=== PATIENT | male | born 1980 | race Caucasian/White ===

== ENCOUNTER 2016-11-10 07:49 | Inpatient (IN) | payer OTHER ==
[~2016-11-10] VITALS: Ht 185.4 cm; Wt 130.0 kg
[2016-11-10 12:25] VITALS: BP 141/90; PULSE 108; TEMP 36.6; BMI 37.8
[2016-11-10] MEDS ORDERED: BISMUTH SUBSALICYLATE PER ML OMNICELL CHARGE PO PRN (12:45)
[2016-11-10] MEDS ORDERED: MAGNESIUM HYDROXIDE SUSP 30 ML UDC PO PRN (12:45)
[2016-11-10] MEDS ORDERED: hydrOXYzine HCL 25 MG TAB PO PRN ×2 (12:45→13:45)
[2016-11-10] MEDS ORDERED: SODIUM CHLORIDE 0.65% NA SOLN 45 ML (OCEAN) PRN (12:45)
[2016-11-10] MEDS ORDERED: ALUMINUM/MAGNESIUM SUSP 30 ML UDC PO PRN (12:45)
[2016-11-10] MEDS ORDERED: ATR25 PO (12:47)
[2016-11-10] MEDS ORDERED: BREX1TAB5 PO (12:49)
[2016-11-10] MEDS ORDERED: ERGO500037 PO (12:50)
[2016-11-10] MEDS ORDERED: PRAZ1CAP10 PO (12:51)
[2016-11-10] MEDS ORDERED: BUPR-79 PO (12:52)
[2016-11-10] MEDS ORDERED: CLB/200 PO (12:53)
[2016-11-10] MEDS ORDERED: CLR10 PO (12:54)
[2016-11-10] MEDS ORDERED: LEVO88TA3 PO (12:56)
[2016-11-10] MEDS ORDERED: LISI40TA PO (12:58)
[2016-11-10] MEDS ORDERED: VENL225T27 PO (12:59)
[2016-11-10] MEDS ORDERED: PATIENT'S ALLERGY INFO NEEDS ENTERED SCH (13:00)
[2016-11-10] MEDS ORDERED: VENLAFAXINE HCL XR 75 MG CAPXR PO ONE (14:58)
[2016-11-10] MEDS ORDERED: CeleBREX 200 MG CAP PO ONE (14:58)
[2016-11-10] MEDS ORDERED: LISINOPRIL 40 MG TAB PO ONE (14:58)
[2016-11-10] MEDS ORDERED: LORATADINE 10 MG TAB PO ONE (14:58)
[2016-11-10] MEDS: CeleBREX 200 MG CAP PO SCH ×2 (15:12→15:13)
[2016-11-10] MEDS: LORATADINE 10 MG TAB PO SCH (15:13)
[2016-11-10] MEDS: LISINOPRIL 40 MG TAB PO SCH (15:14)
[2016-11-10] MEDS: CHOLECALCIFEROL 1000 INTER.UNIT TAB PO SCH (15:14)
[2016-11-10] MEDS: NICOTINE POLACRILEX 2 MG GUM MT PRN ×3 (15:41→21:09)
[2016-11-10 16:04] VITALS: BP 136/92; PULSE 111; TEMP 36.4
[2016-11-10] MEDS: BuPROPion SR 150 MG TABCR PO SCH (17:24)
[2016-11-10 20:57] VITALS: BP 136/91; PULSE 111; TEMP 36.8
[2016-11-10] MEDS: PRAZOSIN HCL 1 MG CAP PO SCH (21:35)
[2016-11-10] MEDS ORDERED: BuPROPion SR 150 MG TABCR PO SCH (22:00)
[2016-11-11 06:51] VITALS: BP_SYST 128; BP_SYST 139; BP_DIAS 82; BP_DIAS 83; PULSE 111; PULSE 116; TEMP 36.3
[2016-11-11 07:07] VITALS: Ht 185.4 cm; Wt 130.0 kg
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
[2016-11-11] MEDS: LEVOTHYROXINE 88 MCG TAB PO SCH (08:18)
[2016-11-11] MEDS: LORATADINE 10 MG TAB PO SCH (08:19)
[2016-11-11] MEDS: LISINOPRIL 40 MG TAB PO SCH (08:19)
[2016-11-11] MEDS: VENLAFAXINE HCL XR 150 MG CAPXR PO SCH (08:19)
[2016-11-11] MEDS: CHOLECALCIFEROL 1000 INTER.UNIT TAB PO SCH (08:19)
[2016-11-11] MEDS: BuPROPion SR 150 MG TABCR PO SCH ×2 (08:19→17:16)
[2016-11-11] MEDS: CeleBREX 200 MG CAP PO SCH (08:19)
[2016-11-11] MEDS ORDERED: VENLAFAXINE HCL XR 75 MG CAPXR PO SCH (09:00)
[2016-11-11] MEDS: NICOTINE POLACRILEX 2 MG GUM MT PRN ×2 (13:04→21:11)
[2016-11-11] MEDS: PRAZOSIN HCL 1 MG CAP PO SCH (21:11)
[2016-11-12] MEDS: ACETAMINOPHEN 325 MG TAB PO PRN ×3 (01:10→21:47)
[2016-11-12 06:52] VITALS: BP_SYST 125; BP_SYST 138; BP_DIAS 88; BP_DIAS 89; PULSE 108; PULSE 118; TEMP 36.3
[2016-11-12] MEDS: LEVOTHYROXINE 88 MCG TAB PO SCH (08:19)
[2016-11-12] MEDS: BuPROPion SR 150 MG TABCR PO SCH ×2 (08:20→17:15)
[2016-11-12] MEDS: LORATADINE 10 MG TAB PO SCH (08:20)
[2016-11-12] MEDS: CeleBREX 200 MG CAP PO SCH (08:20)
[2016-11-12] MEDS: CHOLECALCIFEROL 1000 INTER.UNIT TAB PO SCH (08:20)
[2016-11-12] MEDS: VENLAFAXINE HCL XR 150 MG CAPXR PO SCH (08:20)
[2016-11-12] MEDS: LISINOPRIL 40 MG TAB PO SCH (08:21)
--- NOTE | 2016-11-12 11:51 | Psychiatric Progress Notes ---
Progress Note Date of Service November 12, 2016. Interval History 36 yo male admitted on a voluntary basis on a referral from [facility] for severe depression and suicidality in the context of problems with his , and substance abuse. Chief Complaint "I'd be great if my knee didn't hurt.". Subjective Patient was seen & assessed interval progress reviewed with Treatment Team. The patient says that he just had a family meeting with his , which he thought went well. He was surprised and happy to hear her say that she would attend AA with him so that he could stop drinking and she could stop using cannabis. He is now very optimistic that they can work on their relationship together. He initially felt "defensive" in the meeting, like he was "being picked on" but later realized that he wasn't. He says he has not had SI yesterday or today. He hopes to remain in the hospital for another day or two to work on his issues. he is complaining of lt knee pain and swelling, saying he has had gout in the past, thinking he is having a gout flair. Review of Systems Constitutional: + problem reported (pain in rt knee making ambulation painful) ENT: No dental problems, No hearing loss, No nasal symptoms, No problem reported, No sore throat, No tinnitus, No trouble swallowing, No unusual epistaxis Respiratory: No cough, No dyspnea at rest, No dyspnea on exertion, No hemoptysis, No problem reported, No shortness of breath, No sputum, No wheezing Cardiovascular: No PND, No chest pain, No claudication, No edema, No orthopnea , No palpitations, No problem reported Abdomen: No GI bleeding, No constipation, No diarrhea, No nausea, No pain, No problem reported, No vomiting Musculoskeletal: + joint pain, + swelling Neurologic: No balance problems, No memory loss, No numbness/tingling, No paralysis, No problem reported, No vertigo, No weakness Psychiatric: + depression symptoms (improving) Integumentary: No bleeding, No color change, No itch, No new/changing skin lesions, No problem reported, No rash Sleep Information Total Hours of Sleep: 6.00 Meal Information Percent of Breakfast Consumed: 100 Percent of Lunch Consumed: 100 Percent of Dinner Consumed: 100 Mental Status Exam During interview pt is: alert and oriented, cooperative, other (obese, unkempt , malodorous) Appearance: appropriately dressed, appropriately groomed Eye contact is: good Motor behavior is: steady gait & station, no abnormal motor movements, other ( Using a walker to ambulate due to rt knee pain) Speech: normal in rate, rhythm & volume Affect: mood congruent, depressed, constricted Mood is: depressed Thought process: goal directed, concrete Thought content: reality based without delusions Suicidal thought are: denied Homicidal thoughts are: denied Hallucinations: denies auditory, denies visual Cognition: attention grossly intact, language grossly intact, other (memory impaired for historic details) Intelligence estimated to be: average Insight: impaired Judgement: impaired Impression The patient had a good meeting with his today and is now more optimistic. They have agreed to attend AA together. She brought his bottle of Rexulti to the hospital and we will resume his 3 mg dose at bedtime. Will run a uric acid level in view of knee complaints. With reports of previous attacks of gout, if elevated will give colchicine 1.2 mg X1 with 0.6 mg. 1 hour later. Plan (1) Depression 11/11 -Increase venlafaxine XR to 300 mg daily and continue bupropion SR 150 mg twice a day. If this is ineffective, consider switching to another antidepressant. -Continue prazosin 1mg qhs, but clarify dosing as OSH records indicate 2mg. -Resume home dose of Rexulti once family can bring it in. Indication unclear, may have had psychotic depression in the past, but not evident from records, and he states the hallucinations occur only briefly during periods of severe stress. -Coordinate care with outpatient providers and request records. -Family meeting with . Consider the need for CYS report. -Encourage group attendance and participation. 11/12 - Family meeting held with . Both agree to attend AA together - has brought Rexult and so will resume 3 mg. HS (2) Generalized anxiety disorder -Increase venlafaxine XR as above. Offer hydroxyzine as needed for anxiety. -Work on healthy coping skills and behavioral techniques for managing anxiety. (3) Alcohol use disorder 11/11 -The patient's AUDIT score suggests problematic drinking (Zone III WHO). Brief intervention was offered and [accepted] [refused] Intervention if performed was greater than 5 min in length. Brief interventions include: 1. Assess Readiness to Quit, 2. Advise: Help Patient to Reduce or Abstain from Alcohol, 3. Agree: Set Specific, Feasible Goals, 4. Assist: Anticipate barriers, Problem-Solving Solutions. Social work to 5. Arrange: Referrals to appropriate treatment. Summary of intervention: The patient is in precontemplation stage with regards to transtheoretical model of change. The patient is advised to decrease alcohol consumption due to depressant effects and risk of interactions with prescription medications. The patient agreed to [] and will be provided with recovery materials to continue to education self on how to cope with their condition without drinking. 11/12 - Patient and agree to attend AA together - Will provide with list of AA meetings in their area (4) Thyroid nodule -Continue thyroid medication and f/u with PCP Dr. Belcher, as TSH is elevated. Has appointment scheduled 11/12, will need to be rescheduled. (5) Obesity (BMI 30-39.9) Educated about healthy diet and recommendations to increase physical activity and lose weight. This would likely help with his chronic back pain. (6) Chronic back pain Cont. home dose Celebrex, and f/u with PCP. (7) Gout 11/12 - Uric acid level - If elevated will order colchicine 1.2 mg X 1 with 0.6 mg 1 hr later for acute flair. Discharge / Aftercare Planning Primary Care Physician: Name: Dr. Belcher Date of Appointment: November 12, 2016 Psychiatrist: Name: Dr. Braga - [facility] Therapist: Name: Carter Lazo [facility] Date of Appointment: November 22, 2016 Senior Cytotechnologist: Name: Asia Lazo [facility] Visit Code E&M Code: 81315 Inventory Assets Strengths: , supportive mother Risk Factors Assessment Male: Yes : Yes /single/: No Health problems: Yes Mental Health Diagnoses: Yes Substance use disorders: Yes Previous attempt: No Previous psychiatric stay: Yes Hopelessness: Yes Smoker: Yes Protective Factors Assessment : Yes Responsible for young children: Yes Employed: No Stable relationships: No Supportive family: Yes Good rapport with provider: No Data Vital Signs Last 24 Hrs: Date Time Temp Pulse Resp B/P Pulse Ox O2 Delivery O2 Flow Rate FiO2 11/12/16 06:52 36.3 108 16 138/89 118 125/88 Meds Administered Last 24 Hrs: Meds Administered (Past 24Hrs) Medications (Trade) Dose Ordered Sig/June Route Start Time Stop Time Status Last Admin Dose Admin Acetaminophen (Tylenol Tab) 650 mg Q4H PRN PO 11/10/16 12:45 12/10/16 12:44 11/12/16 07:13 650 MG Hydroxyzine HCl (Vistaril Tab) 50 mg HSZ PRN PO 11/10/16 12:45 12/10/16 12:44 11/10/16 22:26 50 MG Celecoxib (CeleBREX CAP) 200 mg DAILY PO 11/11/16 09:00 12/10/16 08:59 11/12/16 08:20 200 MG Cholecalciferol (Vitamin D Tab) 1,000 inter.unit DAILY PO 11/11/16 09:00 12/11/16 08:59 11/12/16 08:20 1,000 INTER.UNIT Hydroxyzine HCl (Vistaril Tab) 25 mg QID PRN PO 11/10/16 13:45 12/10/16 13:44 11/10/16 15:15 25 MG Levothyroxine Sodium (Synthroid Tab) 88 mcg DAILYBB PO 11/11/16 08:00 12/11/16 07:59 11/12/16 08:19 88 MCG Lisinopril (Zestril Tab) 40 mg DAILY PO 11/11/16 09:00 11/12/16 08:21 40 MG Loratadine (Claritin Tab) 10 mg DAILY PO 11/11/16 09:00 11/12/16 08:20 10 MG Prazosin HCl (Prazosin) 1 mg HS PO 11/10/16 22:00 12/10/16 21:59 11/11/16 21:11 1 MG Nicotine Polacrilex (Nicorette 2MG Gum) 1 piece Q1H PRN MT 11/10/16 13:45 12/10/16 13:44 11/11/16 21:11 1 PIECE Venlafaxine HCl (effeXOR EXTENDED REL CAP) 300 mg QAM PO 11/11/16 09:00 12/10/16 08:59 11/12/16 08:20 300 MG Bupropion HCl (Wellbutrin-Sr Tab) 150 mg BID17 PO 11/10/16 17:00 12/10/16 16:59 11/12/16 08:20 150 MG Venlafaxine HCl (effeXOR EXTENDED REL CAP) 300 mg 1458 ONCE PO 11/10/16 14:58 11/10/16 15:20 DC 11/10/16 15:46 300 MG Problem Qualifiers (1) Depression: Depression Type: major depressive disorder Major depression recurrence: recurrent Major depression episode severity: severe Psychotic features: without psychotic features
[2016-11-12] MEDS: NICOTINE POLACRILEX 2 MG GUM MT PRN ×3 (12:18→21:18)
[2016-11-12] MEDS ORDERED: NURSING VERBAL MED ORDER ONE (14:45)
[2016-11-12] MEDS ORDERED: COLCHICINE 0.6 MG TAB PO ONE ×2 (15:00→16:00)
[2016-11-12] MEDS: PRAZOSIN HCL 1 MG CAP PO SCH (21:14)
[2016-11-12] MEDS: BREXPIPRAZOLE 3 MG PO SCH (21:14)
[2016-11-13] MEDS: ACETAMINOPHEN 325 MG TAB PO PRN (02:15)
[2016-11-13 06:55] VITALS: BP_SYST 133; BP_SYST 135; BP_DIAS 87; PULSE 109; PULSE 96; TEMP 36.5
[2016-11-13] MEDS: LEVOTHYROXINE 88 MCG TAB PO SCH (08:04)
[2016-11-13] MEDS: CeleBREX 200 MG CAP PO SCH (08:45)
[2016-11-13] MEDS: BuPROPion SR 150 MG TABCR PO SCH ×2 (08:46→17:19)
[2016-11-13] MEDS: LORATADINE 10 MG TAB PO SCH (08:46)
[2016-11-13] MEDS: VENLAFAXINE HCL XR 150 MG CAPXR PO SCH (08:46)
[2016-11-13] MEDS: LISINOPRIL 40 MG TAB PO SCH (08:46)
[2016-11-13] MEDS: CHOLECALCIFEROL 1000 INTER.UNIT TAB PO SCH (08:46)
--- NOTE | 2016-11-13 12:27 | Psychiatric Progress Notes ---
Progress Note Date of Service November 13, 2016. Interval History 36 yo male admitted on a voluntary basis on a referral from [facility] for severe depression and suicidality in the context of problems with his , and substance abuse. Chief Complaint "Still optimistic.". Subjective Patient was seen & assessed interval progress reviewed with Treatment Team. The patient's knee feels better today after 2 doses of colchicine, although still painful when ambulating. He says that he continues to feel optimistic that "this new direction" will help he and his . He was provided a list of AA meetings in his area. He had not previously thought that his alcohol use was a problem, but after recognizing that alcohol was part of previous hospitalizations, he has reconsidered this. He knows that it won't be easy to stay away from it all together, but wants for both he and his not to resort to substances to cope. He has spoken with his since the meeting and she remains committed to going to AA together. Review of Systems Constitutional: No chills, No fatigue, No fever, No problem reported, No sweats , No weakness, No weight loss ENT: No dental problems, No hearing loss, No nasal symptoms, No problem reported, No sore throat, No tinnitus, No trouble swallowing, No unusual epistaxis Respiratory: No cough, No dyspnea at rest, No dyspnea on exertion, No hemoptysis, No problem reported, No shortness of breath, No sputum, No wheezing Cardiovascular: No PND, No chest pain, No claudication, No edema, No orthopnea , No palpitations, No problem reported Abdomen: No GI bleeding, No constipation, No diarrhea, No nausea, No pain, No problem reported, No vomiting Musculoskeletal: + joint pain (lt knee pain, but swelling and redness improved) Neurologic: No balance problems, No memory loss, No numbness/tingling, No paralysis, No problem reported, No vertigo, No weakness Psychiatric: + depression symptoms (improving) Sleep Information Total Hours of Sleep: 6.50 Meal Information Percent of Breakfast Consumed: 100 Percent of Lunch Consumed: 100 Percent of Dinner Consumed: 100 Mental Status Exam During interview pt is: alert and oriented, cooperative, other (obese, unkempt , malodorous) Appearance: appropriately dressed, appropriately groomed Eye contact is: good Motor behavior is: no abnormal motor movements, other (SLight limp when ambulating) Speech: normal in rate, rhythm & volume Affect: mood congruent, depressed, constricted Mood is: other ("optimistic") Thought process: goal directed, concrete Thought content: reality based without delusions Suicidal thought are: denied Homicidal thoughts are: denied Hallucinations: denies auditory, denies visual Cognition: attention grossly intact, language grossly intact, other (memory impaired for historic details) Intelligence estimated to be: average Insight: impaired Judgement: impaired Impression Remains optimistic, depression improving. Willing to give up alcohol moving forward and will have good aftercare for both psychiatry and substance use through [facility] after discharge. If progress continues will consider discharge as early as tomorrow. Plan (1) Depression 11/11 -Increase venlafaxine XR to 300 mg daily and continue bupropion SR 150 mg twice a day. If this is ineffective, consider switching to another antidepressant. -Continue prazosin 1mg qhs, but clarify dosing as OSH records indicate 2mg. -Resume home dose of Rexulti once family can bring it in. Indication unclear, may have had psychotic depression in the past, but not evident from records, and he states the hallucinations occur only briefly during periods of severe stress. -Coordinate care with outpatient providers and request records. -Family meeting with . Consider the need for CYS report. -Encourage group attendance and participation. 11/12 - Family meeting held with . Both agree to attend AA together - has brought Rexult and so will resume 3 mg. HS 11/13 - Continue current meds (2) Generalized anxiety disorder -Increase venlafaxine XR as above. Offer hydroxyzine as needed for anxiety. -Work on healthy coping skills and behavioral techniques for managing anxiety. (3) Alcohol use disorder 11/11 -The patient's AUDIT score suggests problematic drinking (Zone III WHO). Brief intervention was offered and [accepted] [refused] Intervention if performed was greater than 5 min in length. Brief interventions include: 1. Assess Readiness to Quit, 2. Advise: Help Patient to Reduce or Abstain from Alcohol, 3. Agree: Set Specific, Feasible Goals, 4. Assist: Anticipate barriers, Problem-Solving Solutions. Social work to 5. Arrange: Referrals to appropriate treatment. Summary of intervention: The patient is in precontemplation stage with regards to transtheoretical model of change. The patient is advised to decrease alcohol consumption due to depressant effects and risk of interactions with prescription medications. The patient agreed to [] and will be provided with recovery materials to continue to education self on how to cope with their condition without drinking. 11/12 - Patient and agree to attend AA together - Will provide with list of AA meetings in their area (4) Thyroid nodule -Continue thyroid medication and f/u with PCP Dr. Belcher, as TSH is elevated. Has appointment scheduled 11/12, will need to be rescheduled. (5) Obesity (BMI 30-39.9) Educated about healthy diet and recommendations to increase physical activity and lose weight. This would likely help with his chronic back pain. (6) Chronic back pain Cont. home dose Celebrex, and f/u with PCP. (7) Gout 11/12 - Uric acid level - If elevated will order colchicine 1.2 mg X 1 with 0.6 mg 1 hr later for acute flair. 11/13 - Will need PCP appt Discharge / Aftercare Planning Primary Care Physician: Name: Dr. Belcher Phone Number: Date of Appointment: November 18, 2016 Time of Appointment: 1130 Psychiatrist: Name: Dr. Braga - [facility] Phone Number: [phone] Date of Appointment: Dec 10, 2016 Time of Appointment: 930 Appointment Notes: Ronald Villela Therapist: Name: Carter - [facility] Phone Number: [phone] Date of Appointment: November 22, 2016 Time of Appointment: 1:00 Blueprint Reader: Name: Asia - [facility] Phone Number: [phone] Appointment Notes: Asia does her own scheduling - left message for call back Partial or Psych Rehab: Name: [facility] Phone Number: [phone] Date of Appointment: November 20, 2016 Time of Appointment: 830 Appointment Notes: Intake Visit Code E&M Code: 56709 Inventory Assets Strengths: , supportive mother Risk Factors Assessment Male: Yes : Yes /single/: No Health problems: Yes Mental Health Diagnoses: Yes Substance use disorders: Yes Previous attempt: No Previous psychiatric stay: Yes Hopelessness: Yes Smoker: Yes Protective Factors Assessment : Yes Responsible for young children: Yes Employed: No Stable relationships: No Supportive family: Yes Good rapport with provider: No Data Vital Signs Last 24 Hrs: Date Time Temp Pulse Resp B/P Pulse Ox O2 Delivery O2 Flow Rate FiO2 11/13/16 06:55 36.5 96 18 133/87 109 135/87 Meds Administered Last 24 Hrs: Meds Administered (Past 24Hrs) Medications (Trade) Dose Ordered Sig/June Route Start Time Stop Time Status Last Admin Dose Admin Brexpiprazole (Rexulti) 3 mg HS PO 11/12/16 22:00 12/12/16 21:59 11/12/16 21:14 3 MG Colchicine (Colchicine Tab) 1.2 mg 1500 ONCE PO 11/12/16 15:00 11/12/16 15:01 DC 11/12/16 14:56 1.2 MG Colchicine (Colchicine Tab) 0.6 mg 1600 ONCE PO 11/12/16 16:00 11/12/16 16:01 DC 11/12/16 16:54 0.6 MG Lab Results Last 24 Hrs: Last 24 Hours Test 11/12/16 13:30 Uric Acid 9.5 mg/dl Problem Qualifiers (1) Depression: Depression Type: major depressive disorder Major depression recurrence: recurrent Major depression episode severity: severe Psychotic features: without psychotic features (2) Gout: Gout site: knee Gout etiology: unspecified cause Laterality: left Chronicity: acute Qualified Codes: M10.9 - Gout, unspecified
[2016-11-13] MEDS: NICOTINE POLACRILEX 2 MG GUM MT PRN ×3 (13:04→21:20)
[2016-11-13] MEDS: PRAZOSIN HCL 1 MG CAP PO SCH (21:21)
[2016-11-13] MEDS: BREXPIPRAZOLE 3 MG PO SCH (21:21)
[2016-11-14 06:47] VITALS: BP_SYST 124; BP_SYST 133; BP_DIAS 82; BP_DIAS 89; PULSE 120; PULSE 97; TEMP 36.5
[2016-11-14] MEDS: LEVOTHYROXINE 88 MCG TAB PO SCH (07:36)
[2016-11-14] MEDS: LISINOPRIL 40 MG TAB PO SCH (08:33)
[2016-11-14] MEDS: VENLAFAXINE HCL XR 150 MG CAPXR PO SCH (08:33)
[2016-11-14] MEDS: BuPROPion SR 150 MG TABCR PO SCH (08:33)
[2016-11-14] MEDS: LORATADINE 10 MG TAB PO SCH (08:33)
[2016-11-14] MEDS: CHOLECALCIFEROL 1000 INTER.UNIT TAB PO SCH (08:33)
[2016-11-14] MEDS: CeleBREX 200 MG CAP PO SCH (08:33)
[2016-11-14] MEDS ORDERED: EFFSR150 PO (09:12)
[2016-11-14] MEDS: NICOTINE POLACRILEX 2 MG GUM MT PRN (09:27)
--- NOTE | 2016-11-14 09:29 | Discharge Instructions ---
Discharge Information Report Includes Report will include the: Discharge Instructions & Summary Admission Admission Date / Time: November 10, 2016 at 11:14 Reason for Admission: Major Depression,Nos Discharge Discharge Diagnosis / Problem: Depression and anxiety Condition at Discharge: Good Discharge Goals Goal(s): Decrease discomfort, Improve disease control, Prevent Disease Progression Activity Recommendations Activity Limitations: resume your previous activity . Instructions / Follow-Up Instructions / Follow-Up . SPECIAL CARE INSTRUCTIONS: 1. Follow through with your scheduled aftercare appointments. If unable to keep an appointment, please call to reschedule. 2. Take your medication only as prescribed. Medication should not be changed or stopped without the approval of your doctor. In the event of worsening symptoms or concerns about side effects, contact your doctor immediately. 3. Utilize new healthy coping skills, anger management skills, and stress management skills learned during your hospitalization. Journal feelings and process them with a support person. Identify stressors or situations that may result in relapse, deterioration or inappropriate behaviors and develop a plan to deal with those issues. 4. If your coping skills are ineffective and you are in crisis, contact your outpatient providers for direction. If unable to reach your providers, please call the CAN HELP LINE AT or go to the closest Emergency Room. 5. Avoid alcohol and un-prescribed drugs. 6. You have been provided with the Mental Health Advance Directives Pamphlet for your review. AFTERCARE APPOINTMENTS: * Please call your insurance company prior to your scheduled appointment to confirm your aftercare providers are covered. Take your insurance information to your appointments. . Discharge / Aftercare Planning Primary Care Physician: Name: Dr. Belcher Phone Number: [phone] Date of Appointment: November 18, 2016 Time of Appointment: 1130 Psychiatrist: Name: Dr. Braga - [facility] Phone Number: [phone] Date of Appointment: Dec 10, 2016 Time of Appointment: 930 Appointment Notes: Ronald Villela Therapist: Name Of Therapist: Carter [facility] Phone Number: [phone] Date of Appointment: November 22, 2016 Time of Appointment: 1:00 Educational Coordinator: Name: Asia [facility] Phone Number: [phone] Appointment Notes: Asia does her own scheduling - left message for call back Partial or Psych Rehab: Name: [facility] Phone Number: [phone] Date Of Appointment: November 20, 2016 Time of Appointment: 830 Appointment Comments: Intake . Follow-Up Care Plan for Follow-Up Care: The patient will have follow up with [facility] within a month Current Hospital Diet Patient's current hospital diet: Regular Diet Discharge Diet Recommended Diet: Regular Diet Procedures Procedures Performed: No Pending Studies Pending Studies at Discharge: No Medical Emergencies . Who to Call and When: Medical Emergencies: For questions or emergencies related to your hospital stay, please contact the Inpatient Behavioral Health Unit at [phone]. A behavior clinician is on-call 27/01 for the Behavioral Health Unit for emergencies At any time you feel your situation is an emergency, you may also call 911 immediately. . Non-Emergent Contact Non-Emergency issues call your: Psychiatrist, Therapist Past History Medical & Surgical History: (1) Gout Advance Directives Existing Advance Directive: No Do You Have an Existing Mental: No Existing Living Will: No Existing Power of Detailer: No Advance Directives Info Given: To Pt/S.O. Advance Directives Reason: Declines as Mental Health Visit. Discharge Summary Admission HPI Per the Admitting provider: Patient was referred from [facility] emergency room after he presented there with his mother on 11/10/16 with worsening depression and suicidal ideation. He stated no one likes him, and he could not stop the thoughts from going around in his head. He said he had lost all of his supports , and that his and son hate him. He admitted to drinking excessively, about 10 beers, and his blood alcohol level was 252. He endorsed a plan to end his life by cutting his throat and wrists. He reported feeling hopeless for the past 2-3 months, had been fighting frequently with his , and they had a verbal altercation yesterday. Due to this, he felt he had "lost his support system," and was thinking of using a steak knife to cut his throat and wrists. He said if he was not hospitalized he "would be gone." He endorsed auditory hallucinations telling him he is "stupid," and "messed things up again." He states he's heard voices telling him to harm himself over the past 3 months. He reported poor sleep recently with nightmares, increased appetite, and depressed mood. Stressors include fighting with and loss of his therapist at [facility]. He received 2 mg of Ativan for agitation, and was transferred to our facility for voluntary admission. Today he says he had "an anxiety attack" yesterday where he "spun out of control , felt like people were out to get me, so thought I better go to the ER before I did anything stupid." He says he has been depressed and "having issues with my ," as well as financial issues. He has been trying to get disability and just found out the date of his hearing, and is worried about finances. He admits to fighting with his , which he says was about his drinking, "she was screaming at me and pushed me over the edge." He had been drinking Sat. evening and says he had a 12 pack, and then started fighting with his , who was telling him he shouldn't drink. He then "got real depressed, started thinking all I have to do is get a knife and end it all, and I got real scared. " He called his mother who came and brought him to the ER. He has talked to his today and says she will participate in a meeting, as he wants to talk about her substance abuse issues, as she went to rehab for cannabis use, "she was doing it all the time," and completed a 3 week course, but when she got home told him it was "a joke, and she's back to smoking weed again." He says he' s been depressed "as long as I can remember," saying he's always had financial problems "hanging over my head." He endorses decreased sleep, 5-6 hours a night , disrupted by nightmares of family being harmed, occur 2-3 times a week which is an improvement since starting prazosin. Appetite is increased and over-eats when bored, has gained 38lbs over the past year. Endorses chronic worry, primarily about finances. When anxious, feels people are "out to get me," but denies isaac paranoia or hallucinations as well as first rank symptoms. When was anxious and intoxicated says he heard a voice talking to him when no one was there, saying "hey," and he recognized there was no one there. Says it has happened before when he was very anxious, but only briefly. Has had nightmares of abuse once a month, denies flashbacks, has not processed it in therapy because "I keep losing therapists." Reports anger outbursts that occur when "overwhelmed," and he will yell, but denies physical aggression. His OP provider added Rexulti a few months ago and he thinks it has been helpful. He is not sure of his prazosin dose, as med rec indicates 1mg but OSH records from February hospitalization indicate 2mg. He states he is worried about his 's drug use, saying he has caught her smoking in the house when the kids were there a couple weeks ago, and she will "take off to do it" and he has to watch the kids. He denies that anyone has ever talked to him about his substance abuse , saying he doesn't think his drinking is a problem, but then saying it was what caused the argument with his and "being pushed over the edge." Also reviewed that he was intoxicated at the time of his last psychiatric admission. He gives inconsistent reports about his suicidality, having told staff yesterday that he was having daily suicidal thoughts, but today telling me that he had not been thinking about suicide at all until the argument with his . He denies symptoms of panic and matthew. Hospital Course (1) Depression 11/11 -Increase venlafaxine XR to 300 mg daily and continue bupropion SR 150 mg twice a day. If this is ineffective, consider switching to another antidepressant. -Continue prazosin 1mg qhs, but clarify dosing as OSH records indicate 2mg. -Resume home dose of Rexulti once family can bring it in. Indication unclear, may have had psychotic depression in the past, but not evident from records, and he states the hallucinations occur only briefly during periods of severe stress. -Coordinate care with outpatient providers and request records. -Family meeting with . Consider the need for CYS report. -Encourage group attendance and participation. 11/12 - Family meeting held with . Both agree to attend AA together - has brought Rexult and so will resume 3 mg. HS 11/13 - Continue current meds (2) Generalized anxiety disorder -Increase venlafaxine XR as above. Offer hydroxyzine as needed for anxiety. -Work on healthy coping skills and behavioral techniques for managing anxiety. (3) Alcohol use disorder 11/11 -The patient's AUDIT score suggests problematic drinking (Zone III WHO). Brief intervention was offered and [accepted] [refused] Intervention if performed was greater than 5 min in length. Brief interventions include: 1. Assess Readiness to Quit, 2. Advise: Help Patient to Reduce or Abstain from Alcohol, 3. Agree: Set Specific, Feasible Goals, 4. Assist: Anticipate barriers, Problem-Solving Solutions. Social work to 5. Arrange: Referrals to appropriate treatment. Summary of intervention: The patient is in precontemplation stage with regards to transtheoretical model of change. The patient is advised to decrease alcohol consumption due to depressant effects and risk of interactions with prescription medications. The patient agreed to [] and will be provided with recovery materials to continue to education self on how to cope with their condition without drinking. 11/12 - Patient and agree to attend AA together - Will provide with list of AA meetings in their area (4) Thyroid nodule -Continue thyroid medication and f/u with PCP Dr. Belcher, as TSH is elevated. Has appointment scheduled 11/12, will need to be rescheduled. (5) Obesity (BMI 30-39.9) Educated about healthy diet and recommendations to increase physical activity and lose weight. This would likely help with his chronic back pain. (6) Chronic back pain Cont. home dose Celebrex, and f/u with PCP. (7) Gout 11/12 - Uric acid level - If elevated will order colchicine 1.2 mg X 1 with 0.6 mg 1 hr later for acute flair. 11/13 - Will need PCP appt Risk Factors Assessment Male: Yes : Yes /single/: No Health problems: Yes Mental Health Diagnoses: Yes Substance use disorders: Yes Previous attempt: No Previous psychiatric stay: Yes Hopelessness: Yes Smoker: Yes Protective Factors Assessment : Yes Responsible for young children: Yes Employed: No Stable relationships: No Supportive family: Yes Good rapport with provider: No Day of Discharge Assessment COURSE OF HOSPITALIZATION: During the patient's 4 day stay, he was continued on his outpatient medications with the exception of increasing Effexor XR to 300 mg daily. He tolerated this without side effect. His primary stress is been out of his relationship with his who had recently come out of rehabilitation and was back to using substances. They had a family meeting during his stay and she agreed to work on her substance use issues and he agreed also to attend AA, seeing his binge drinking as a problem. He was surprised by her willingness and they both recommitted to working on their relationship. This improved his mood significantly, he ceased to have any further suicidal ideation. During his stay he had a flare of what appeared to be gout. He indicates he's had this in the past. His uric acid level was elevated and he was provided to dose of cultures seen which helped to improve swelling and erythema in his left knee. He will have a follow-up appointment with his PCP, for consideration of our parent all therapy. He [facility]. He was provided with a list of AA meetings in the [place] area as well. His anxiety was high during the beginning of his hospitalization but abated. His sleep and appetite were good. DAY OF DISCHARGE ASSESSMENT: Today the patient is requesting discharge. He is considered to be improved. He denies depression or anxiety today, denies suicidal or homicidal ideation. Today he is casually and appropriately dressed and groomed. Gait and station are within normal limits. Eye contact is good. Affect is smiling. Speech is of normal rate volume and tone. Thoughts are organized, goal directed, and without evidence of thought disorder. Recent and remote memory are intact per conversation. Intelligence is estimated to be average. Insight and judgment are improved over admission. Laboratory Test 11/12/16 13:30 Uric Acid 9.5 Total Time Total Time Spent (min): Greater than 30 minutes Total Time Included: examination of the patient, discharge planning, medication reconciliation, communication with other providers Tobacco Cessation at Discharge Smoking Status: Current Every Day Smoker FDA approved Prescription: declined med & out pt counseling Problem Qualifiers (1) Depression: Depression Type: major depressive disorder Major depression recurrence: recurrent Major depression episode severity: severe Psychotic features: without psychotic features (2) Gout: Gout site: knee Gout etiology: unspecified cause Laterality: left Chronicity: acute Qualified Codes: M10.9 - Gout, unspecified
== END 2016-11-14 10:55 | disposition home or self-care (01) | DRG 885 ==
LOC: C.MHU 11:14
PROVIDERS: ADMIT Psychiatry & Neurology Child & Adolescent Psychiatry; ATTEND Psychiatry & Neurology Child & Adolescent Psychiatry
DX: F33.2 Major depressive disorder, recurrent severe without psychotic features (principal); R45.851 Suicidal ideations; F10.129 Alcohol abuse with intoxication, unspecified; M54.9 Dorsalgia, unspecified; K21.9 Gastro-esophageal reflux disease without esophagitis; E66.9 Obesity, unspecified; Z68.30 Body mass index [BMI] 30.0-30.9, adult; E04.1 Nontoxic single thyroid nodule; F17.200 Nicotine dependence, unspecified, uncomplicated; F41.1 Generalized anxiety disorder; M1A.9XX0 Chronic gout, unspecified, without tophus (tophi)